=== PATIENT | female | born 2000 | race Caucasian/White ===

== ENCOUNTER 2019-04-13 10:04 | Emergency (ER) | payer BC, MEDICAID ==
[~2019-04-13 10:04] MED LIST: HYDR-826 PO
--- NOTE | 2019-04-13 10:28 | NUR ---
NA X 1
--- NOTE | 2019-04-13 10:42 | NUR ---
LATE ENTRY FOR 1035 NA X2
--- NOTE | 2019-04-13 10:43 | NUR ---
NA X 3
== END 2019-04-13 10:49 | disposition left against medical advice (07) ==
LOC: ED 10:43
DX: J02.9 Acute pharyngitis, unspecified (principal); Z53.21 Procedure and treatment not carried out due to patient leaving prior to being seen by health care provider